=== PATIENT | male | born 1945 | race Caucasian/White ===

== ENCOUNTER 2019-04-27 09:34 | Emergency (ER) | payer MEDICARE, BC ==
[2019-04-27] MEDS ORDERED: Amiodarone In Dextrose,Iso-Osm 150 MG in Premix Bag 1 BAG IV ONE ×2 (09:42)
[2019-04-27] MEDS ORDERED: Sodium Chloride 0.9% 1,000 ML IV SCH (09:45)
[2019-04-27] MEDS ORDERED: Nitroglycerin/D5W 25 MG/250 ML BOTTLE IV SCH (09:45)
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
[2019-04-27] MEDS ORDERED: Aspirin 81 MG Tab.Chew PO ONE (09:56)
--- NOTE | 2019-04-29 08:08 | CR ---
Chest: Frontal view of the chest was obtained utilizing portable technique. Comparison: No previous study. Heart size and mediastinum are normal. Slight scarring or atelectasis is noted within the right lung base. Lungs otherwise are clear. Prior sternotomy is noted for CABG. Bony structures are grossly intact. Impression: 1. Incidental findings. Nothing acute is appreciated on portable chest x-ray. Diagnostic code #2
== END 2019-04-27 14:05 ==
LOC: JD.ED 09:34
DX: I47.2 Ventricular tachycardia (principal); K21.9 Gastro-esophageal reflux disease without esophagitis; J44.9 Chronic obstructive pulmonary disease, unspecified; F17.210 Nicotine dependence, cigarettes, uncomplicated; Z88.8 Allergy status to other drugs, medicaments and biological substances; Z79.899 Other long term (current) drug therapy
CPT/HCPCS: 36415; 71045; 80053; 82553; 83735; 83880; 84443; 84484; 85007; 85027; 85610; 85730; 93005; 96365; 96366; 96368; 99285; J0282; J3490; J7040; 93010

== ENCOUNTER 2019-09-20 10:01 | Emergency (ER) | payer MEDICARE, BC ==
--- NOTE | 2019-09-20 12:37 | CR ---
Chest: Portable view of the chest was obtained. Comparison: Previous chest x-ray of 06/12/19. AICD is present. Slight linear scarring is noted within the right base. Lungs otherwise are clear with no acute parenchymal change. Previous sternotomy is noted. Bony structures are grossly intact. Impression: 1. Findings as noted above believed to be incidental. 2. Nothing acute is appreciated on portable chest x-ray. Diagnostic code #2
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
== END 2019-09-20 14:10 ==
LOC: JD.ED 10:01
DX: R55 Syncope and collapse (principal); I25.2 Old myocardial infarction; I50.9 Heart failure, unspecified; J44.9 Chronic obstructive pulmonary disease, unspecified; I49.9 Cardiac arrhythmia, unspecified; Z95.810 Presence of automatic (implantable) cardiac defibrillator; Z88.8 Allergy status to other drugs, medicaments and biological substances; Z95.1 Presence of aortocoronary bypass graft; Z95.5 Presence of coronary angioplasty implant and graft; Z79.899 Other long term (current) drug therapy; Z87.891 Personal history of nicotine dependence
CPT/HCPCS: 36415; 71045; 71045-26; 80053; 83735; 84484; 85025; 93005; 93010; 99283; 99285-25

== ENCOUNTER 2020-03-18 14:22 | Emergency (ER) | payer MEDICARE, BC ==
[~2020-03-18 14:22] MED LIST: Sodium Bicarbonate 8.4% 50 MEQ/50 ML Syringe ONE
[2020-03-18] MEDS ORDERED: Succinylcholine 200 MG/10 ML MDV ONE (14:45)
[2020-03-18] MEDS ORDERED: Etomidate 2 MG/ML 20 ML SDV IVPUSH ONE (14:45)
[2020-03-18] MEDS ORDERED: Lidocaine 1% PF 2 ML SDV ONE (14:45)
--- NOTE | 2020-03-18 15:31 | CT ---
CT cervical spine Technique: Multiple axial sections through the cervical spine were obtained from above C1 inferiorly to the bottom of T2. Reconstructed sagittal and coronal images were obtained. Comparison: No prior cervical spine imaging is available. Findings: Severe disc space narrowing at C2-3 through C6-7. Mild disc space narrowing is noted at C7-T1. Anterior osteophytes are seen throughout the cervical spine as well as posterior osteophytes. Diffuse degenerative apophyseal change is also noted within the visualized spine. No fracture is seen within the cervical spine. Scoliosis is present. No acute subluxation is seen. Mildly displaced fractures are noted within the left 2nd, 3rd and partially visualized 4th posterior ribs. Diffuse neural foraminal stenosis is noted throughout the cervical spine. Moderate central canal stenosis noted at C3-4 and C4-5. Mild central canal stenosis at C5-6 and C6-7. Impression: 1. Fractures within the posterior left 2nd, 3rd and partially visualized 4th rib. 2. Diffuse degenerative change within the cervical spine as described above. 3. No acute cervical spine fracture is appreciated. Diagnostic code #3 This report was dictated in MDT
--- NOTE | 2020-03-18 15:39 | CT ---
Head CT Technique: Multiple axial sections through the brain were obtained. Intravenous contrast was not utilized. Comparison: No prior intracranial imaging is available. Findings: Diffuse subarachnoid blood is seen within the frontal and parietal region on both sides filling the sulci. Small subdural hematoma on the right side with thickness of the 5.7 mm. Small petechial hemorrhages are noted within the posterior right temporal and occipital lobe. Mild midline shift is seen to the left side measuring approximately 4.4 mm. Prominent soft tissue swelling within the left anterior scalp. Fluid noted within both maxillary sinuses which may possibly represent blood. Soft tissue density noted within the sphenoid sinus on the right side possibly due to additional blood. Soft tissue error noted posterior to the right maxillary sinus. Partially visualized fracture noted within the inferior right maxillary sinus which shows no displacement on this exam. Fracture also appears to be present within the anterior maxillary sinus showing no significant displacement. Soft tissue error noted around the left globe anteriorly and within the left frontal scalp. Fracture also noted within the superior left orbital roof showing no displacement. Intracranial extension is noted. No additional calvarial fracture is appreciated. Impression: 1. Subarachnoid blood, small right-sided subdural hematoma and small petechial cortical hemorrhages within the posterior right temporal and occipital lobes. 2. Large soft tissue hematoma within the left frontal scalp. 3. Blood within the paranasal sinuses. 4. Fracture within the anterior and posterior maxillary sinuses on the right side with no significant displacement being seen. Additional fracture noted within the left orbital roof with intracranial extension without definite displacement. 5. Mild midline shift to the left side measuring 4.4 mm. Diagnostic code #5 This report was dictated in MDT
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
--- NOTE | 2020-03-18 15:56 | CT ---
CT chest Technique: Multiple axial sections were obtained from above the lung apices inferiorly through the lung bases. Intravenous contrast was not utilized. Findings: Pleural thickening noted posteriorly within the left upper lung. Fractures is noted within the posterior left 2nd rib. Mildly displaced fracture within the posterior left 3rd rib with additional and mildly displaced fracture within the lateral 3rd rib. Mildly displaced fracture in 2 places within the left 4th rib involving both posterior and lateral ribs. Mildly displaced fracture in 2 places noted within the left 5th rib which which is posterior and posterolateral. Mildly displaced fracture is seen in 2 places within the left 6th rib being posterior and posterolateral. Mildly displaced fractures in 2 places seen within the left 7th rib being posterior and posterolateral. Nondisplaced fracture is noted with posteriorly within the 8th rib with significantly displaced fracture within the posterolateral 8th rib. Mildly displaced fracture is noted within the left 9th rib posteriorly in 2 places. Fracture noted within the left 11th rib close to the costovertebral junction as well as posterolaterally with minimal angulation. Nondisplaced fracture within the posterior right 7th rib with mildly displaced fracture within the posterior right 8th rib. Mildly displaced fracture within the posterolateral right 9th rib is seen. Nondisplaced fracture is noted within the posterior right 10th rib. Mediastinum shows atherosclerotic calcification within the aorta without aneurysm. Coronary artery calcification is noted. Prior sternotomy is seen. Mediastinum and hilar region show no adenopathy. Diffuse areas of increased density with a right and left chest are seen most likely due to pulmonary contusions and atelectasis. No pneumothorax appreciated at this time. Impression: 1. Numerous rib fractures on the right and left sides of which on the left side occurring 2 places. Multiple rib fractures show displacement. 2. Pleural thickening within the left lung posteriorly most likely relating to the rib fractures diffuse increased density within both sides of the lung, worse on the left side most likely due to pulmonary contusions. 3. Other findings as noted above believed to be pre-existing and nonacute. Diagnostic code #5 CT abdomen and pelvis Comparison: Prior CT abdomen and pelvis study of 06/12/19. Technique: Multiple axial sections were obtained from above the dome of the diaphragm inferiorly through the pubic symphysis. Intravenous and oral contrast not utilized. Findings: Liver contains no discrete abnormality. Spleen shows no focal abnormality. Adrenal glands show no nodule. Calcifications are seen within the lisseth hepatis most likely vascular in etiology. Pancreas shows no discrete abnormality. Several cysts noted within the right kidney. No left kidney is seen. Diffuse atherosclerotic calcification within the aorta and branch vessels are noted. No aneurysm is seen. No retroperitoneal adenopathy is seen. No pelvic mass or adenopathy is noted. Prostate gland mildly enlarged. No free fluid or inflammatory change is appreciated within the abdomen or within the pelvis. Bone window settings were reviewed which shows mildly displaced fracture within the inferior left pubic ramus as well as mildly displaced fracture within the left superior pubic ramus at its junction to the acetabulum. Left superior pubic ramus fracture extends into the mid acetabulum on the left side. Sacroiliac joint appears normal in alignment. Impression: 1. Left-sided pubic rami fractures as noted above with extension into the left medial acetabulum. 2. Other findings as noted above. Nothing acute is otherwise seen on CT study of the abdomen and pelvis. Diagnostic code #3 This report was dictated in MDT
--- NOTE | 2020-03-18 15:59 | CT ---
CT thoracic spine Technique: Multiple axial sections through the thoracic spine were obtained. Reconstructed coronal and sagittal images were obtained. Findings: Diffuse disc space narrowing is seen. Mild compression deformities are noted of T9, T10 and T11. Diffuse vacuum disc phenomena is seen within the lower thoracic spine. No discrete acute fracture line is noted within the thoracic spine. No central canal stenosis is seen. Numerous rib fractures are noted as described on chest CT study. Impression: 1. Compression deformities within the lower thoracic spine. No definite acute fracture lines are seen. MRI would be needed to completely exclude the possibility of acute compression deformity if clinically indicated. 2. Multiple rib fractures are again seen as described on chest CT. 3. Nothing acute is otherwise seen on CT study of the thoracic spine. 4. Diffuse degenerative change is present. Diagnostic code #3 This report was dictated in MDT
== END 2020-03-18 18:25 | disposition expired ==
LOC: JD.ED 14:22
DX: S06.2X9A Diffuse traumatic brain injury with loss of consciousness of unspecified duration, initial encounter (principal); J44.9 Chronic obstructive pulmonary disease, unspecified; I50.9 Heart failure, unspecified; E78.00 Pure hypercholesterolemia, unspecified; I25.2 Old myocardial infarction; Z95.1 Presence of aortocoronary bypass graft; Z95.5 Presence of coronary angioplasty implant and graft; Z88.8 Allergy status to other drugs, medicaments and biological substances; Z79.899 Other long term (current) drug therapy; V86.99XA Unspecified occupant of other special all-terrain or other off-road motor vehicle injured in nontraffic accident, initial encounter
CPT/HCPCS: 36680; 70450; 70450-26; 71250; 71250-26; 72125; 72125-26; 72128; 72128-26; 74176; 74176-26; 92950; 99285-25; J0330; J2001; J3490